=== PATIENT | female | born 1940 | race Caucasian/White ===

== ENCOUNTER → 2018-11-25 | Outpatient (CLI) | payer OTHER | LOC: M.CT 11:43 | DX: K59.00 Constipation, unspecified (principal) ==

== ENCOUNTER 2018-12-11 20:44 | Emergency (ER) | payer OTHER ==
[~2018-12-11] VITALS: Ht 175.3 cm; Wt 59.0 kg
[2018-12-11] MEDS ORDERED: COQ-10100 MG PO (20:59)
[2018-12-11] MEDS ORDERED: FOLIC ACID1 MG PO (20:59)
[2018-12-11] MEDS ORDERED: CLOPIDOGREL75 MG PO (20:59)
[2018-12-11] MEDS ORDERED: SIMVASTATIN40 MG PO (21:00)
[2018-12-11] MEDS ORDERED: VITAMIN D2000 UNIT PO (21:00)
[2018-12-11] MEDS ORDERED: ACIDOPHILUS1 EAC4 PO (21:00)
[2018-12-11] MEDS ORDERED: FISH OIL 1,001000 M2 PO (21:00)
[2018-12-11] MEDS ORDERED: MIRALAX17 GM PO (21:01)
[2018-12-11 21:33] LABS: ABSOLUTE BASOPHILS 0.1 thou/uL (0.0-0.2); ABSOLUTE EOSINOPHILS 0.2 thou/uL (0.0-0.7); ABSOLUTE LYMPHOCYTES 1.2 thou/uL (0.8-5.3); ABSOLUTE MONOCYTES 0.6 thou/uL (0.0-1.2); ABSOLUTE NEUTROPHILS 5.7 thou/uL (1.6-8.1); BASOPHILS 1.3 %; HEMATOCRIT 41.6 % (37.0-47.0); HEMOGLOBIN 13.9 gm/dL (12.0-15.0); LYMPHOCYTES 15.3 %; MCHC 33.5 g/dL (28.0-37.0); MCV 92.4 fL (80.0-100.0); MONOCYTES 7.8 %; MPV 7.7 fl. (7.2-11.1); NUCLEATED RBCS 0 /100WBC; PLATELET COUNT* 167 thou/uL (150-400); POLYS 73.6 %; WBC 7.7 thou/uL (4.0-11.0)
[2018-12-11 21:41] LABS: CALCIUM 9.1 mg/dL (8.5-10.1); CREATININE 0.9 mg/dL (0.6-1.3); POTASSIUM 3.9 mmol/L (3.5-5.1)
[2018-12-11 21:48] LABS: ALBUMIN 3.7 g/dL (3.4-5.0); TOTAL BILIRUBIN 0.7 mg/dL (<0.1-1.0); TOTAL PROTEIN 6.5 g/dL (6.4-8.2)
[2018-12-11 22:56] VITALS: BP 150/71
== END 2018-12-11 22:58 | disposition home or self-care (01) ==
LOC: M.ERS 20:44
PROVIDERS: Nurse Practitioner Family
DX: K56.41 Fecal impaction (principal); K58.9 Irritable bowel syndrome, unspecified; Z88.6 Allergy status to analgesic agent

== ENCOUNTER → 2019-12-17 | Outpatient (CLI) | payer OTHER ==
[~2019-12-17] MED LIST: ACIDOPHILUS1 EAC4 PO; CLOPIDOGREL75 MG PO; COQ-10100 MG PO; FISH OIL 1,001000 M2 PO; FOLIC ACID1 MG PO; MIRALAX17 GM PO; SIMVASTATIN40 MG PO; VITAMIN D2000 UNIT PO
--- NOTE | 2019-12-18 08:27 | 2DMMODE ---
[place] [address] 2 D/M-MODE ECHOCARDIOGRAM Name: ALFONSO CLEVELAND Room: [facility]#: [id number] Admission: 12/17/19 Attend Phys: Bambi Villegas MD Discharge: Date of : 42 Date of Service: 12/18/19 0826 Report #: [id number] THIS REPORT FOR: cc: Bambi Villegas MD, Lin W. MD Liston, Michael J. MD [facility] ~ APPROVED REPORT Study performed: 12/17/2019 12:56:56 EXAM: Comprehensive 2D, Doppler, and color-flow Echocardiogram/ Bubble Study Patient Location: Out-Patient BSA: 1.69 HR: 57 bpm BP: 104/60 mmHg Other Information Study Quality: Good Indications CVA/TIA Echo Enhancing Agent Indication: Rule out Shunt Agent(s) / Amount(s) Used: Agitated Saline 4 cc 2D Dimensions IVSd: 9.79 (7-11mm) LVOT Diam: 19.59 (18-24mm) LVDd: 45.59 mm PWd: 9.43 (7-11mm) Ascending Ao: 27.96 (22-36mm) LVDs: 25.37 (25-40mm) Aortic Root: 24.04 mm Volumes Left Atrial Volume (Systole) LA ESV Index: 15.90 mL/m2 Aortic Valve AoV Peak Barney.: 1.27 m/s AO Peak Gr.: 6.46 mmHg LVOT Max P.25 mmHg AO Mean Gr.: 3.32 mmHg LVOT Mean P.57 mmHg LVOT Max V: 0.90 m/s AO V2 VTI: 28.19 cm LVOT Mean V: 0.57 m/[place] [address] 2 D/M-MODE ECHOCARDIOGRAM Name: TURNERALFONSO Room: [facility]#: [id number] Admission: 12/17/19 Attend Phys: Bambi Villegas MD Discharge: Date of : 42 Date of Service: 12/18/19 0826 Report #: [id number] JARRET (VTI): 2.36 cm2 LVOT V1 VTI: 22.06 cm Mitral Valve E/A Ratio: 0.80 MV Decel. Time: 236.20 ms MV E Max Barney.: 0.38 m/s MV PHT: 68.50 ms MVA (PHT): 3.21 cm2 TDI E/Lateral E': 4.75 E/Medial E': 6.33 Medial E' Barney.: 0.06 m/s Lateral E' Barney.: 0.08 m/s Pulmonary Valve PV Peak Barney.: 0.74 m/s PV Peak Gr.: 2.19 mmHg Tricuspid Valve RAP Estimate: 5.00 mmHg TR Peak Gr.: 17.54 mmHg RVSP: 22.54 mmHg PA Pressure: 22.54 mmHg Left Ventricle The left ventricle is normal size. There is normal LV segmental wall motion. There is normal left ventricular wall thickness. Left ventricular systolic function is normal. LVEF is 55-60%. Grade I - abnormal relaxation pattern. Right Ventricle The right ventricle is normal size. The right ventricular systolic function is normal. Atria The left atrium size is normal. Injection of bubbles documented no interatrial shunt. The right atrium size is normal. Aortic Valve The aortic valve is normal in structure. No aortic regurgitation is present. There is no aortic valvular stenosis. Mitral Valve The mitral valve is normal in structure. Mild mitral regurgitation. No evidence of mitral valve stenosis. Tricuspid Valve The tricuspid valve is normal in structure. [place] [address] 2 D/M-MODE ECHOCARDIOGRAM Name: ALFONSO CLEVELAND Room: [facility]#: [id number] Admission: 12/17/19 Attend Phys: Bambi Villegas MD Discharge: Date of : 42 Date of Service: 12/18/19 0826 Report #: [id number] regurgitation. No pulmonary hypertension. Pulmonic Valve The pulmonary valve is normal in structure. There is no pulmonic valvular regurgitation. Great Vessels The aortic root is normal in size. IVC is normal in size and collapses >50% with inspiration. Pericardium There is no pericardial effusion. <Conclusion> The left ventricle is normal size. There is normal left ventricular wall thickness. Left ventricular systolic function is normal. LVEF is 55-60%. Grade I - abnormal relaxation pattern. Injection of bubbles documented no interatrial shunt. Mild mitral regurgitation. Mild tricuspid regurgitation. No pulmonary hypertension. IVC is normal in size and collapses >50% with inspiration. <ELECTRONICALLY SIGNED> By: Mikel Diane MD, FACC 12/18/19825 5 5 Mikel Diane MD, FACC /INF
== END ==
LOC: M.CRD 12:55
PROVIDERS: ATTEND Internal Medicine
DX: I08.1 Rheumatic disorders of both mitral and tricuspid valves (principal); G45.9 Transient cerebral ischemic attack, unspecified

== ENCOUNTER → 2020-10-19 | Outpatient (CLI) | payer OTHER ==
--- NOTE | 2020-10-28 11:30 | PF ---
[address] [address] PULMONARY FUNCTION REPORT Name: ALFONSO CLEVELAND Room: [facility].#: [id number] Admission: 10/19/20 Attend Phys: Paulo Woodard MD Discharge: Date of : 42 Report #: [id number] THIS REPORT FOR: cc: Bambi Villegas MD, Lin W. MD Pervez, Adeel MD ~ DOC #: [id number] Paulo Woodard MD DATE OF VISIT: 10/19/2020 PULMONARY FUNCTION TEST SPIROMETRY: The FEV1/FVC ratio is normal at 41% with an FVC normal at 86%. The FEV1 is also normal at 82%. FEF 25-75 is decreased to 57%. After the administration of a bronchodilator, there is no significant increase in any of these values. The patient's post-bronchodilator FEV1 is 1.96 liters. The flow volume loop is concave upwards. The total lung capacity is normal at 85% with a residual volume normal at 86%. The DLCO as adjusted for hemoglobin is decreased to 53%. IMPRESSION: 1. Minimal obstruction without evidence of reversibility. 2. Normal lung volumes. 3. DLCO as adjusted for hemoglobin decreased to 53%. MD IVÁN Vidales/DAYLIN <ELECTRONICALLY SIGNED> By: Paulo Woodard MD 10/28/20 1130 [id number] david Marquez
== END ==
LOC: M.PUL 11:30
PROVIDERS: ATTEND Internal Medicine Critical Care Medicine
DX: J45.30 Mild persistent asthma, uncomplicated (principal); R06.02 Shortness of breath; Z88.8 Allergy status to other drugs, medicaments and biological substances

== ENCOUNTER → 2021-03-09 | Outpatient (CLI) | payer OTHER ==
--- NOTE | 2021-03-10 13:49 | CARDNUC ---
[place] [address] CARDIAC NUCLEAR IMAGING REPORT Name: ALFONSO CLEVELAND Room: [facility]#: [id number] Admission: 03/09/21 Attend Phys: Yokasta Xavier Discharge: Date of : 42 Date of Service: 03/10/21 1349 Report #: [id number] THIS REPORT FOR: cc: Bambi Villegas MD, Lin W. MD Biggs, F. Douglas MD [facility] ~ APPROVED REPORT Imaging Protocol: Rest Tc-99m/Stress Tc-99m 1 day Study performed: 03/09/2021 14:20:28 Indication: Abnormal EKG, Dyspnea Patient Location: Out-Patient Stress Nurse: STEPHANIE Ruth Tech:MIRA Machado Ht: 5 ft 7 in Wt: 129 lbs BSA: 1.68 m2 BMI: 20.20 Medical History Medical History: Fatigue, HTN, Hyperlipidemia, Former Smoker Medications: clopidogrel, simvastatin Allergies: asa Cardiac Risk Factors: Age, FHX of CAD, Hyperlipidemia, Tobacco History (Former) Exercise History: Physically active Resting Data Rest SPECT myocardial perfusion imaging was performed in supine position 30 minutes following the intravenous injection of 9.7 mCi of Tc-99m Sestamibi. Time of rest injection: 1315 Date: 03/09/2021 The images were gated to evaluate regional wall motion and calculate left ventricular ejection fraction. Administration Route: IV Pharmacologic Stress Pharmacologic stress test was performed by injecting Regadenoson 0.4 mg IV push over 10-15 seconds immediately followed by the intravenous injection of 34.0 mCi of Tc-99m Sestamibi. Time of stress injection: 1440 Date: 03/09/2021 Administration Route: IV Gated Stress SPECT was performed 40 [place] [address] CARDIAC NUCLEAR IMAGING REPORT Name: ALFONSO CLEVELAND Room: [facility]#: [id number] Admission: 03/09/21 Attend Phys: Yokasta Xavier Discharge: Date of : 42 Date of Service: 03/10/21 1349 Report #: [id number] injection. The images were gated to evaluate regional wall motion and calculate left ventricular ejection fraction. Prone imaging was performed. Stress Test Details Stress Test: Pharmacologic stress testing performed using 0.4 mg of regadenoson per 5 mL given IV over 10 seconds. Reason for pharmacologic stress test: physical limitation. HR Max Heart Rate (APMHR): 141 bpm Resting HR: 55 bpm Target HR (85% APMHR): 119 bpm Max HR Achieved: 80 bpm % of APMHR: 56 Recovery HR: 69 bpm HR response to stress: Normal HR response to stress BP Resting BP: 154/74 mmHg Max BP: 163/92 mmHg Recovery BP: 116/74 mmHg BP response to stress: Normal blood pressure response to stress. ECG Resting ECG: Sinus Bradycardia otherwise normal EKG Stress ECG: Sinus Rhythm with 2 episodes of a [address] Change: None Arrhythmia: SVT Recovery ECG: Sinus Rhythm with 2 episodes of a 5 beat slow PSVT otherwise normal Recovery ST Change: None Recovery Arrhythmia: SVT Clinical Reason for Termination: Completed protocol Stress Symptoms: None Nurse Comments pt has not been able to reach goal on treadmill before Stress ECG Conclusion Normal hemodynamic response to pharmacologic stress. Clinical: Non-ischemic Non-diagnostic pharmacologic EKG stress due to failure [place] [address] CARDIAC NUCLEAR IMAGING REPORT Name: ALFONSO CLEVELAND Room: [facility]#: [id number] Admission: 03/09/21 Attend Phys: Yokasta Xavier Discharge: Date of : 42 Date of Service: 03/10/21 1349 Report #: [id number] Study Quality Study: Good Artifact: No artifact No artifact Lung Uptake: Normal Study Data At rest, the left ventricular ejection fraction was 61%.. Post stress, the left ventricular ejection was 62%.. SSS: 3 SRS: 0 SDS: 3 TID = 1.06. Perfusion Normal left ventricular perfusion. The resting studies were normal, the post-rest studies were normal, the prone images were normal. There were no reversible defects seen there was no evidence of myocardial ischemia Normal perfusion on both the stress and rest images. Images were reviewed using [employer]. Wall Motion Normal left ventricular wall motion. Nuclear Conclusion ECG Findings: non-diagnostic Clinical Findings: negative for ischemia Nuclear Findings: negative for ischemia Exercise Capacity: not assessed Left Ventricular Function: normal Risk Study: low Normal study. No scintigraphic evidence for myocardial ischemia or scar. <Conclusion> Normal hemodynamic response to pharmacologic stress. Clinical: Non-ischemic Non-diagnostic pharmacologic EKG stress due to failure to attain target HR. <ELECTRONICALLY SIGNED> By: Adarsh Boone MD, FACC 03/10/21 1349 48 Adarsh Boone MD, FACC /INF
== END ==
LOC: M.NUC 03-01 15:51
PROVIDERS: ATTEND Internal Medicine
DX: R06.00 Dyspnea, unspecified (principal); E78.2 Mixed hyperlipidemia; R94.31 Abnormal electrocardiogram [ECG] [EKG]; Z82.49 Family history of ischemic heart disease and other diseases of the circulatory system